=== PATIENT | female | born 1980 | race Hispanic/Latino ===

== ENCOUNTER 2017-06-15 16:15 | Outpatient (CLI) | payer OTHER ==
--- NOTE | 2017-06-15 16:40 | RAD ---
PA AND LATERAL CHEST: Date: 06-15-17 History: Cough. Comparison: None. FINDINGS: Cardiac silhouette and pulmonary vasculature are within normal limits. The lungs are clear. The osse ous structures are intact. IMPRESSION: No acute cardiopulmonary process. POS: [facility]
== END 2017-06-15 16:16 | disposition home or self-care (01) ==
LOC: RAD-FRANK 16:15
PROVIDERS: ATTEND Nurse Practitioner Family
DX: J06.9 Acute upper respiratory infection, unspecified (principal); R05 Cough; R09.89 Other specified symptoms and signs involving the circulatory and respiratory systems
CPT/HCPCS: 71020

== ENCOUNTER 2020-07-12 19:19 | Emergency (ER) | payer SELFPAY ==
--- NOTE | 2020-07-12 21:10 | RAD ---
3 VIEWS LEFT FOOT: Date: 07/12/2020 PROVIDED CLINICAL HISTORY: Pain status post injury. FINDINGS: Overlying bandaging material obscures detail in the region of the distal third digit. There is a disp laced fracture of the third digit at terminal tuft. No additional fracture is evident. Alignment appe ars otherwise anatomic. Joint spaces appear preserved. IMPRESSION: Displaced fracture of the third digit terminal tuft. POS: [facility]
[2020-07-12] MEDS ORDERED: Lidocaine 1% PF 5 ML VIAL ONE (21:35)
[2020-07-12] MEDS ORDERED: HYDROcodone/Acetaminophen 10/325 mg Tablet ONE (21:35)
[2020-07-12] MEDS ORDERED: Boostrix 0.5 ML (Tdap) VIAL ONE ×2 (21:36→21:42)
[2020-07-12] MEDS ORDERED: Bacitracin 1 PK ONE ×2 (23:06→23:07)
== END 2020-07-12 23:15 | disposition home or self-care (01) ==
LOC: ERS 19:19
DX: S92.532B Displaced fracture of distal phalanx of left lesser toe(s), initial encounter for open fracture (principal); W04.XXXA Fall while being carried or supported by other persons, initial encounter
CPT/HCPCS: 12002; 90471; 90715